=== PATIENT | female | born 1970 | race Caucasian/White ===

== ENCOUNTER 2021-12-22 00:22 | Observation (INO) ==
[2021-12-22] MEDS ORDERED: Ondansetron ODT 4 MG TAB.RAPDIS SL PRN ×2 (02:47→14:32)
[2021-12-22] MEDS ORDERED: Acetaminophen 325 MG TABLET PO PRN ×2 (02:47→14:32)
[2021-12-22] MEDS ORDERED: Naloxone 0.4 MG/ML INJ IVP PRN ×2 (02:47→14:32)
[2021-12-22] MEDS ORDERED: *HR* HYDROcodone/Acet 5/325 mg TABLET PO PRN ×2 (02:47→14:32)
[2021-12-22] MEDS ORDERED: Melatonin 3 MG TABLET PO PRN ×2 (02:47→14:32)
[2021-12-22] MEDS ORDERED: *HR* OxyCODONE Immed Rel 5 MG TABLET PO PRN ×2 (02:47→14:32)
[2021-12-22] MEDS ORDERED: *HR* HYDROmorphone (PF) 1 MG/ML SYRINGE IVP ONE (02:48)
[2021-12-22] MEDS ORDERED: D5% in Water 1,000 ML IVC PRN ×2 (03:57→14:32)
[2021-12-22] MEDS ORDERED: *HR* Dextrose 50 % in Water (Syg) 50 ML SYRINGE IVP PRN ×2 (03:57→14:32)
[2021-12-22] MEDS ORDERED: Dextrose 4 GM Chewable Tablets PO PRN ×4 (03:57→14:32)
[2021-12-22] MEDS ORDERED: Clindamycin 600 MG/50 ML 600 MG/50 ML IV.SOLN IVPB SCH ×2 (05:00→21:00)
[2021-12-22 06:36] LABS: Hematocrit 33.3 % (35.3-44.9); Hemoglobin 10.8 g/dL (11.5-15.4); Mean Corpuscular HGB Conc 32.4 g/dL (31.6-35.5); Mean Corpuscular Hemoglobin 26.6 pg (28.0-33.3); Mean Platelet Volume 9.6 fL (9.4-12.4); Platelet Count 191 K/mcL (140-400); Red Blood Count 4.06 M/mcL (3.82-4.97); Red Cell Distribution Width 13.4 % (11.5-14.5); White Blood Count 6.9 K/mcL (4.3-11.1)
[2021-12-22 06:42] LABS: INR 1.2; Prothrombin Time 13.1 Seconds (9.4-12.1)
[2021-12-22 06:45] LABS: Activated Partial Thrombo Time 35.6 Seconds (26.0-36.0)
[2021-12-22 06:59] LABS: BUN/Creatinine Ratio 11 (6-26); Blood Urea Nitrogen 11 mg/dL (6-20); Calcium 8.9 mg/dL (8.6-10.3); Carbon Dioxide 25 mEq/L (23-29); Chloride 103 mEq/L (98-107); Chol/HDL Ratio 4.1 (0-4.9); Cholesterol 102 mg/dL (< 200); Glucose 104 mg/dL (70-105); HDL Cholesterol 25 mg/dL (40-59); LDL Cholesterol,Calculated 54 mg/dL (< 100); Magnesium 1.6 mg/dL (1.6-2.6); Osmolality,Calculated 278 (280-300); Phosphorous 3.4 mg/dL (2.7-4.5); Potassium 3.9 mEq/L (3.5-5.1); Sodium 134 mEq/L (136-145); Triglycerides 114 mg/dL (< 150); eGFR For African Americans > 60 (> 60); eGFR For Non-African Americans > 60 (> 60)
[2021-12-22] MEDS ORDERED: Nicotine 21 MG PATCH.TD24 TD SCH ×2 (09:00→17:45)
[2021-12-22] MEDS ORDERED: Ringers Solution, Lactated 1,000 ML IVC SCH ×2 (12:00→14:32)
[2021-12-22] MEDS ORDERED: Lidocaine/EPI 1:100k 1% 30 ML VIAL ONE (13:01)
[2021-12-22] MEDS ORDERED: *HR* FentaNYL (PF) 100 MCG/2 ML VIAL ONE (13:10)
[2021-12-22] MEDS ORDERED: *HR* Midazolam HCl 2 MG/2 ML VIAL ONE (13:10)
[2021-12-22 18:06] VITALS: PULSE 80
[2021-12-22 19:25] VITALS: BP 165/92; TEMP 98.5; O2SAT 98
[2021-12-23] MEDS ORDERED: Nicotine 21 MG PATCH.TD24 TD SCH (09:00)
== END 2021-12-22 23:42 | disposition left against medical advice (07) ==
LOC: 4WAOSI → SUATTDRO 01:52
PROVIDERS: ADMIT Internal Medicine; ATTEND Internal Medicine